=== PATIENT | female | born 1970 | race Two or more races ===

== ENCOUNTER 2017-10-27 13:42 | Emergency (ER) | payer SELFPAY ==
[2017-10-27] MEDS ORDERED: Albuterol/Ipratropium 3.0-0.5 MG/3 ML Neb Soln NEB ONE (14:53)
--- NOTE | 2017-10-27 15:36 | EDM.PDOC ---
ED HPI GENERAL MEDICAL PROBLEM - General Chief Complaint: Chest Pain Stated Complaint: SOB,CHEST PAIN Time Seen by Provider: 10/27/17 14:01 Source of Information: Reports: Patient History Limitations: Reports: No Limitations - History of Present Illness INITIAL COMMENTS - FREE TEXT/NARRATIVE: HISTORY AND PHYSICAL: []47-year-old female presenting with chest hurting and coughing and she has history of bronchitis History of Present Illness: []Further discussion reveals patient has been coughing for about a week She is complaining of pain to her lower back She does housekeeping for employment Daughter is at bedside to help interpret Review of Systems: As per history of present illness and below otherwise all systems reviewed and negative. Past medical history: As per history of present illness and as reviewed below otherwise noncontributory. Surgical history: As per history of present illness and as reviewed below otherwise noncontributory. Social history: No reported history of drug or alcohol abuse. Family history: As per history of present illness and as reviewed below otherwise noncontributory. Physical exam: Alert and oriented female. Speaking in full sentences without shortness of breath. It is warm and dry HEENT: Atraumatic, normocehpalic, pupils reactive, negative for conjunctival pallor or scleral icterus, mucous membranes moist, throat clear, neck supple, nontender, trachea midline. Improved inspiratory expiratory effort after nebulizer treatment given Lungs: Clear to auscultation, breath sounds equal bilaterally, chest tender with palpation. Heart: S1S2, regular, negative for clicks, rubs, or JVD. Abdomen: Soft, nondistended, nontender. Negative for masses or hepatossplenmegaly. Positive for costovertebral tenderness. Pelvis: Stable nontender. Tenderness to the lumbar area laterally. Genitourinary: Deferred. Rectal: Deferred Extremities: Atraumatic, negative for cords or calf pain. Neurovascular unremarkable. Neuro: Awake, alert, oriented. Cranial nerves II through XII unremarkable. Cerebellum unremarkable. Motor and sensory unremarkable throughout. Exam nonfocal. Patient and family members are aware of the indications and diagnosis of bronchitis Diagnostics: []CBC CMP and urinalysis EKG Therapeutics: [DuoNeb] Impression: [Chest wall pain Acute bronchitis Flank pain] Plan: []Discharge to home Albuterol solution for nebulizer machine Bactrim DS 1 tab bid for 7 days Definitive disposition and diagnosis as appropriate pending reevaluation and review of above. Onset: Gradual Duration: Week(s): Location: Reports: Chest Middle Chest Pain Score (Numeric/FACES): 8 - Related Data Allergies Allergy/AdvReac Type Severity Reaction Status Date / Time No Known Allergies Allergy Verified 10/27/17 13:43 Home Meds: Home Meds Albuterol Sulfate 1.25 mg IH Q4HR PRN #1 box 10/27/17 [Rx] Prednisone [IJP: Prednisone] 10 mg PO Q8HR #15 tab 10/27/17 [Rx] Sulfamethoxazole/Trimethoprim [Bactrim Ds Tablet] 1 each PO BID #14 tablet 10/27 [Rx] Past Medical History Respiratory History: Reports: Other (See Below) Other Respiratory History: bronchitis x1 last year - Past Surgical History GI Surgical History: Reports: Cholecystectomy Social & Family History - Family History Family Medical History: Noncontributory - Tobacco Use Smoking Status *Q: Never Smoker - Caffeine Use Caffeine Use: Reports: Coffee - Recreational Drug Use Recreational Drug Use: No ED ROS GENERAL - Review of Systems Review Of Systems: ROS reveals no pertinent complaints other than HPI. ED EXAM, GENERAL - Physical Exam Exam: See Below Course - Vital Signs Last Recorded V/S: Last Vital Signs Temp 36.7 C 10/27/17 13:44 Pulse 88 10/27/17 13:44 Resp 28 H 10/27/17 13:44 BP 139/87 10/27/17 13:44 Pulse Ox 97 10/27/17 13:44 - Orders/Labs/Meds Orders: Active Orders 24 hr Category Date Time Status RT Aerosol Therapy [RC] ASDIRECTED Care 10/27/17 14:53 Active CULTURE URINE [RM] Stat Lab 10/27/17 15:12 Received Labs: Laboratory Tests 10/27/17 10/27/17 10/27/17 Range/Units 15:12 16:07 16:07 WBC 10.61 (4.0-11.0) K/uL RBC 4.85 (4.30-5.90) M/uL Hgb 14.1 (12.0-16.0) g/dL Hct 41.3 (36.0-46.0) % MCV 85.2 (80.0-98.0) fL MCH 29.1 (27.0-32.0) pg MCHC 34.1 (31.0-37.0) g/dL RDW Std Deviation 41.0 (28.0-62.0) fl RDW Coeff of Jessica 13 (11.0-15.0) % Plt Count 251 (150-400) K/uL MPV 9.80 (7.40-12.00) fL Neut % (Auto) 72.5 (48.0-80.0) % Lymph % (Auto) 20.6 (16.0-40.0) % [place] % (Auto) 5.2 (0.0-15.0) % Eos % (Auto) 1.2 (0.0-7.0) % Baso % (Auto) 0.5 (0.0-1.5) % Neut # (Auto) 7.7 H (1.4-5.7) K/uL Lymph # (Auto) 2.2 (0.6-2.4) K/uL [place] # (Auto) 0.6 (0.0-0.8) K/uL Eos # (Auto) 0.1 (0.0-0.7) K/uL Baso # (Auto) 0.1 (0.0-0.1) K/uL Nucleated RBC % 0.0 /100WBC Nucleated RBCs # 0 K/uL Sodium 137 (136-146) mmol/L Potassium 3.7 (3.5-5.1) mmol/L Chloride 106 (98-110) mmol/L Carbon Dioxide 22 (21-31) mmol/L BUN 13 (6.0-23.0) mg/dL Creatinine 0.8 (0.6-1.5) mg/dL Est Cr Clr Drug Dosing 69.50 mL/min Estimated GFR (MDRD) > 60.0 ml/min Glucose 139 H (60-110) mg/dL Calcium 8.9 (8.8-10.8) mg/dL Total Bilirubin 1.1 (0.1-1.5) mg/dL AST 14 (5-40) IU/L ALT 12 (8-54) IU/L Alkaline Phosphatase 85 (40-150) Total Protein 7.4 (6.0-8.0) g/dL Albumin 3.9 (3.5-5.0) g/dL Globulin 3.5 (2.0-3.5) g/dL Albumin/Globulin Ratio 1.1 L (1.3-2.8) Urine Color YELLOW Urine Appearance CLEAR Urine pH 6.0 (5.0-8.0) Ur Specific [place] 1.020 (1.001-1.035) Urine Protein NEGATIVE (NEGATIVE) mg/dL Urine Glucose (UA) NEGATIVE (NEGATIVE) mg/dL Urine Ketones TRACE H (NEGATIVE) mg/dL Urine Occult Blood SMALL H (NEGATIVE) Urine Nitrite NEGATIVE (NEGATIVE) Urine Bilirubin NEGATIVE (NEGATIVE) Urine Urobilinogen 1.0 (<2.0) EU/dL Ur Leukocyte Esterase NEGATIVE (NEGATIVE) Urine RBC 0-1 (0-2/HPF) Urine WBC 0-1 (0-5/HPF) Ur Epithelial Cells FEW (NONE-FEW) Urine Bacteria RARE (NEGATIVE) Meds: Medications Discontinued Medications Generic Name Dose Route Start Last Admin Trade Name Freq PRN Reason Stop Dose Admin Albuterol/Ipratropium 3 ml 10/27/17 14:53 10/27/17 15:00 Duoneb 3.0-0.5 Mg/3 Ml NEB 10/27/17 14:54 3 ml ONETIME ONE Administration Departure - Departure Time of Disposition: 17:30 Disposition: Home, Self-Care 01 Condition: Good Clinical Impression: Bronchitis - Discharge Information Prescriptions: Albuterol Sulfate 1.25 mg IH Q4HR PRN #1 box PRN Reason: Shortness Of Breath Prednisone [IJP: Prednisone] 10 mg PO Q8HR #15 tab Sulfamethoxazole/Trimethoprim [Bactrim Ds Tablet] 1 each PO BID #14 tablet Referrals: PCP,None [Primary Care Provider] - Forms: ED Department Discharge - My Orders Last 24 Hours: My Active Orders 10/27/17 14:53 RT Aerosol Therapy [RC] ASDIRECTED 10/27/17 15:12 CULTURE URINE [RM] Stat - Assessment/Plan Last 24 Hours: My Active Orders 10/27/17 14:53 RT Aerosol Therapy [RC] ASDIRECTED 10/27/17 15:12 CULTURE URINE [RM] Stat
--- NOTE | 2017-10-27 15:56 | CR ---
EXAMINATION: Two-view chest (PA and Lateral views). HISTORY: Shortness of breath. FINDINGS: The trachea is midline. The cardiomediastinal silhouette is within normal limits. No pulmonary infilt rates, effusions or pneumothorax. Osseous structures appear unremarkable. IMPRESSION: No acute cardiopulmonary process.
[2017-10-27 16:41] LABS: CHLORIDE,CL 106 mmol/L (98-110); SODIUM,NA 137 mmol/L (136-146)
== END 2017-10-27 17:56 | disposition home or self-care (01) ==
LOC: MW.ED 13:42
DX: J20.9 Acute bronchitis, unspecified (principal); R07.89 Other chest pain; R10.9 Unspecified abdominal pain
CPT/HCPCS: 36415; 71020; 71020-26; 80053; 81001; 85025; 87086; 87804; 99284; 99284-25